=== PATIENT | female | born 1945 | race Caucasian/White ===

== ENCOUNTER 2017-05-15 08:18 | Day surgery (SDC) | payer BC, MEDICARE ==
[~2017-05-15] VITALS: Ht 170.2 cm; Wt 95.2 kg
--- NOTE | ~2017-05-15 | EGD ---
EGD REPORT [facility] [address] [address] NAME: TALON SUMMERS : [birth year] STATUS : REG [facility] PAT#: [id number] AGE: 71 ADM/REG DATE : 05/15/17 MR#: [id number] REPORT SERV DATE: 05/15/17 DICTATED BY: MAHESH NOYOLA DATE: 05/15/17 REPORT STATUS : Draft [facility]: [facility] DATE: 05/15/17 Endoscopy Center Patient Name: Talon Summers Date of : 1945 Attending MD: MAHESH NOYOLA MD Procedure Date No Time: 05/15/2017 Procedure: Colonoscopy Indications: High risk colon cancer surveillance: Personal history of non-advanced adenoma, Anemia of chronic disease, Heme positive stool Referring MD: JAYLEEN ROYAL MD, POLLO TOMLINSON Medicines: Propofol per Anesthesia Complications: No immediate complications. Estimated blood loss: None. Procedure: Pre-Anesthesia Assessment: - After reviewing the risks and benefits, the patient was deemed in satisfactory condition to undergo the procedure. - Prior to the procedure, a History and Physical was performed, and patient medications and allergies were reviewed. The patient's tolerance of previous anesthesia was also reviewed. The risks and benefits of the procedure and the sedation options and risks were discussed with the patient. All questions were answered, and informed consent was obtained. Prior Anticoagulants: The patient has taken no previous anticoagulant or antiplatelet agents. ASA Grade Assessment: III - A patient with severe systemic disease. After reviewing the risks and benefits, the patient was deemed in satisfactory condition to undergo the procedure. After I obtained informed consent, the scope was passed under direct vision. Throughout the procedure, the patient's blood pressure, pulse, and oxygen saturations were monitored continuously. The CF [id number] was introduced through the anus and advanced to the cecum, identified by appendiceal orifice and ileocecal valve. The colonoscopy was performed with difficulty due to poor bowel prep with stool present. Successful completion of the procedure was aided by lavage. The ileocecal valve and appendiceal orifice were photographed. The patient tolerated the procedure well. The quality of the bowel preparation was poor. The bowel preparation used was polyethylene glycol (PEG). Scope withdrawal time was greater than 8 minutes. Findings: EGD REPORT [address] [place]. [address] NAME: TALON SUMMERS : [birth year] STATUS : REG [facility]#: [id number] AGE: 71 ADM/REG DATE : 05/15/17 MR#: [id number] REPORT SERV DATE: 05/15/17 DICTATED BY: MAHESH NOYOLA DATE: 05/15/17 REPORT STATUS : Draft TRANSCRIBED BY: [facility] DATE: 05/15/17 The perianal exam was abnormal. Findings include internal hemorrhoids that do not return to the anal canal, thus continuously prolapsed (Grade IV). Multiple small-mouthed diverticula were found in the sigmoid colon and in the descending colon. A sessile polyp was found in the transverse colon. The polyp was 8 mm in size. The polyp was removed with a hot snare. Resection and retrieval were complete. Estimated blood loss: none. The exam was otherwise without abnormality. Impression: - Preparation of the colon was poor. - Internal hemorrhoids that do not return to the anal canal, thus continuously prolapsed (Grade IV) found on perianal exam. - Moderate diverticulosis in the sigmoid colon and in the descending colon. - One 8 mm polyp in the transverse colon. Resected and retrieved. - The examination was otherwise normal. - Irritable bowel syndrome with constipation. - Chronic anemia likely related to RA and possible slow blood loss from significant hiatal hernia. Recommendation: - Discharge patient to home (ambulatory). - High fiber diet indefinitely. - Continue present medications. - Await pathology results. - Repeat colonoscopy in 1 year because the bowel preparation was suboptimal and for surveillance. - Patient has a contact number available for emergencies. The signs and symptoms of potential delayed complications were discussed with the patient. Return to normal activities tomorrow. Written discharge instructions were provided to the patient. Procedure Code(s): --- Professional --- 72566, Colonoscopy, flexible, proximal to splenic flexure; with removal of tumor(s), polyp(s), or other lesion(s) by snare technique Diagnosis Code(s): --- Professional --- K64.3, Fourth degree hemorrhoids K58.9, Irritable bowel syndrome without diarrhea K57.30, Diverticulosis of large intestine without perforation or abscess without bleeding D12.3, Benign neoplasm of transverse colon Z86.010, Personal history of colonic polyps EGD REPORT [facility] [address] [address] NAME: TALON SUMMERS : [birth year] STATUS : REG [facility]#: [id number] AGE: 71 ADM/REG DATE : 05/15/17 MR#: [id number] REPORT SERV DATE: 05/15/17 DICTATED BY: MAHESH NOYOLA. DATE: 05/15/17 REPORT STATUS : Draft TRANSCRIBED BY: [employer] DATE: 05/15/17 CPT copyright 2013 [employer]. All rights reserved. The codes documented in this report are preliminary and upon information writer review may be revised to meet current compliance requirements. MAHESH NOYOLA MD 05/15/2017 10:37 AM This report has been signed electronically. Number of Addenda: 0 Note Initiated On: 05/15/2017 9:38 AM Scope Withdrawal Time 0 hours 9 minutes 23 seconds [address] [id number]
--- NOTE | ~2017-05-15 | EGD ---
EGD REPORT [facility] [address] [address] NAME: TALON SUMMERS : [birth year] STATUS : REG [facility] PAT#: [id number] AGE: 71 ADM/REG DATE : 05/15/17 MR#: [id number] REPORT SERV DATE: 05/15/17 DICTATED BY: MAHESH NOYLOA DATE: 05/15/17 REPORT STATUS : Draft [facility]ANSCRIBED BY: [facility] DATE: 05/15/17 Endoscopy Center Patient Name: Talon Summers Date of : 1945 Attending MD: MAHESH NOYOLA MD Procedure Date No Time: 05/15/2017 Procedure: Upper GI endoscopy Indications: Iron deficiency anemia secondary to chronic blood loss, Dysphagia, Gastro-esophageal reflux disease, Heme positive stool Referring MD: JAYLEEN ROYAL MD, POLLO TOMLINSON Medicines: Propofol per Anesthesia Complications: No immediate complications. Estimated blood loss: None. Procedure: Pre-Anesthesia Assessment: - After reviewing the risks and benefits, the patient was deemed in satisfactory condition to undergo the procedure. - Prior to the procedure, a History and Physical was performed, and patient medications and allergies were reviewed. The patient's tolerance of previous anesthesia was also reviewed. The risks and benefits of the procedure and the sedation options and risks were discussed with the patient. All questions were answered, and informed consent was obtained. Prior Anticoagulants: The patient has taken no previous anticoagulant or antiplatelet agents. ASA Grade Assessment: III - A patient with severe systemic disease. After reviewing the risks and benefits, the patient was deemed in satisfactory condition to undergo the procedure. After obtaining informed consent, the endoscope was passed under direct vision. Throughout the procedure, the patient's blood pressure, pulse, and oxygen saturations were monitored continuously. The GIF [id number] was introduced through the mouth, and advanced to the jejunum. The upper GI endoscopy was accomplished without difficulty. The patient tolerated the procedure well. Findings: The examined esophagus was normal. A guidewire was placed and the scope was withdrawn. Dilation was performed with a Savary dilator with no resistance at 45 Fr. Estimated blood loss: none. Diffuse moderate inflammation characterized by congestion (edema), erythema and granularity was found in the gastric antrum. Biopsies were taken with a cold forceps for histology. Estimated blood loss: none. A medium-sized hiatus hernia was present. EGD REPORT [address] [address] NAME: TALON SUMMERS : [birth year] STATUS : REG [facility]#: [id number] AGE: 71 ADM/REG DATE : 05/15/17 MR#: [id number] REPORT SERV DATE: 05/15/17 DICTATED BY: MAHESH NOYOLA DATE: 05/15/17 REPORT STATUS : Draft TRANSCRIBED BY: [email or web address] DATE: 05/15/17 The examined duodenum was normal. Biopsies were taken with a cold forceps for histology. Estimated blood loss: none. Impression: - Normal esophagus. Dilated. - Bile gastritis. Biopsied. - Hiatus hernia. - Normal examined duodenum. Biopsied. - Non-erosive esophageal reflux (NERD) disease present. - Chronic anemia likely related to RA and possible chronic blood loss from significant hiatal hernia. Recommendation: - Discharge patient to home (ambulatory). - Return to previous diet. - Continue present medications including Prilosec (omeprazole) 40 mg daily before meal. - Await pathology results. - Perform a colonoscopy today. - Patient has a contact number available for emergencies. The signs and symptoms of potential delayed complications were discussed with the patient. Return to normal activities tomorrow. Written discharge instructions were provided to the patient. - Patient has a contact number available for emergencies. The signs and symptoms of potential delayed complications were discussed with the patient. Return to normal activities tomorrow. Written discharge instructions were provided to the patient. Procedure Code(s): --- Professional --- 87647, Esophagogastroduodenoscopy, flexible, transoral; with insertion of guide wire followed by passage of dilator(s) through esophagus over guide wire 70698, Esophagogastroduodenoscopy, flexible, transoral; with biopsy, single or multiple Diagnosis Code(s): --- Professional --- K29.60, Other gastritis without bleeding K44.9, Diaphragmatic hernia without obstruction or gangrene K21.9, Gastro-esophageal reflux disease without esophagitis D50.0, Iron deficiency anemia secondary to blood loss (chronic) R13.10, Dysphagia, unspecified R19.5, Other fecal abnormalities EGD REPORT [facility] [address] [place] [place]. [address] NAME: TALON SUMMERS : [birth year] STATUS : REG [facility] PAT#: [id number] AGE: 71 ADM/REG DATE : 05/15/17 MR#: [id number] REPORT SERV DATE: 05/15/17 DICTATED BY: MAHESH NOYOLA. DATE: 05/15/17 REPORT STATUS : Draft TRANSCRIBED BY: [email or web address] DATE: 05/15/17 CPT copyright 2013 [employer]. All rights reserved. The codes documented in this report are preliminary and upon sewing machinist review may be revised to meet current compliance requirements. MAHESH NOYOLA MD 05/15/2017 10:06 AM This report has been signed electronically. Number of Addenda: 0 Note Initiated On: 05/15/2017 9:39 AM Scope Withdrawal Time 0 hours 0 minutes 0 seconds [address] [facility] [place] [address]
[~2017-05-15 08:18] MED LIST: ADVAIR250 INH; ARAVA20 PO; ASTELIN NAS; AVAP150 PO; AVAPRO300 MG PO; B121000P IM; BREO ELLIPTA 21 EACH INH; BREO ELLIPTA INH; BUSPAR10 PO; CALTRA600D PO; CARASPUDL PO; COMBIVENT INH; CYMBALTA30 PO; DCN100 PO; DELTADOSE; DEMA20 PO; DULERA 100 MCG/13 GM INH; ENBREL25 MG SC; FERROUS SULF325 M1 PO; FLONASE NAS; FOLIC PO; IRBESARTAN 300 MG; K-TABS10 MEQ PO; KDUR10 PO; LEVAQUIN5T PO; LEVOTHYROXIN100 MCG PO; LEVOTHYROXIN75 MCG PO; MICRO-K10 MEQ PO; NASONEX NAS; NORCO1 TA1 PO; NORCO1 TA2 PO; NORV10 PO; P1 PO; PLAQ200B PO; PREV30 PO; PRILO PO; PRILOSEC40 MG PO; PROAIR HFA INH; PROVENTSOL INH; RECLAST IV; REMICADE IV; REQUIP1 PO; REQUIP3 PO; SINGULAIR1 PO; SODBICAR10 PO; SPECTAZOLE TOP; SPIRIVA INH; STERAPDS12; SUCR PO; TESS PO; TOVIAZ4 MG PO; TRAZ100 PO; VIT B12; ZOFRAN ODT4 MG PO; ZOFRAN8 PO; ZOL50 PO
== END 2017-05-15 23:59 | disposition home or self-care (01) ==
LOC: DMU 08:18
PROVIDERS: Internal Medicine Gastroenterology
PROC: 0DBL8ZZ Excision of Transverse Colon, Via Natural or Artificial Opening Endoscopic (ICD-10-PCS; 2017-05-15)
PROC: 0D758ZZ Dilation of Esophagus, Via Natural or Artificial Opening Endoscopic (ICD-10-PCS; principal; 2017-05-15 09:45)
PROC: 0DB68ZX Excision of Stomach, Via Natural or Artificial Opening Endoscopic, Diagnostic (ICD-10-PCS; 2017-05-15 09:45)
PROC: 0DB98ZX Excision of Duodenum, Via Natural or Artificial Opening Endoscopic, Diagnostic (ICD-10-PCS; 2017-05-15 09:45)
DX: D12.3 Benign neoplasm of transverse colon (principal); K44.9 Diaphragmatic hernia without obstruction or gangrene; K64.3 Fourth degree hemorrhoids; K57.30 Diverticulosis of large intestine without perforation or abscess without bleeding; K21.9 Gastro-esophageal reflux disease without esophagitis; I10 Essential (primary) hypertension; E03.9 Hypothyroidism, unspecified; J44.9 Chronic obstructive pulmonary disease, unspecified; M06.9 Rheumatoid arthritis, unspecified; D50.0 Iron deficiency anemia secondary to blood loss (chronic); L40.9 Psoriasis, unspecified; F32.9 Major depressive disorder, single episode, unspecified; Z86.010 Personal history of colon polyps; Z88.5 Allergy status to narcotic agent; Z88.8 Allergy status to other drugs, medicaments and biological substances; Z88.6 Allergy status to analgesic agent; Z88.0 Allergy status to penicillin; Z90.49 Acquired absence of other specified parts of digestive tract; Z90.711 Acquired absence of uterus with remaining cervical stump; Z98.41 Cataract extraction status, right eye; Z98.42 Cataract extraction status, left eye; Z98.1 Arthrodesis status; Z96.653 Presence of artificial knee joint, bilateral; Z96.1 Presence of intraocular lens; Z96.643 Presence of artificial hip joint, bilateral; Z79.52 Long term (current) use of systemic steroids; Z79.51 Long term (current) use of inhaled steroids; Z79.899 Other long term (current) drug therapy; Z98.890 Other specified postprocedural states
CPT/HCPCS: 88305